=== PATIENT | female | born 1975 | race American Indian/Alaskan Native ===

== ENCOUNTER 2017-01-19 11:57 | Outpatient (CLI) | payer OTHER ==
[2017-01-19] MEDS ORDERED: NACL ONE (13:23)
--- NOTE | 2017-01-19 14:40 | Cat Scan Report ---
CT scan of abdomen and pelvis with IV contrast: History: Nausea with vomiting. Findings: Normal lung bases. No pleural pericardial effusion. Normal spleen, pancreas and gallbladder. Circumscribed hypodensity in liver measuring 1.5 cm in diameter suggestive of cyst. Normal adrenals and kidney parenchyma and bladder. Retroverted uterus. No free intraperitoneal fluid. No evidence of adenopathy. Normal aorta. The appendix is not confidently visualized although no evidence of appendicitis is noted. No evidence of diverticulitis. Gaseous colon with Impression: Cyst in liver. No definite acute abdominal findings. Moderate volume stool in colon mainly in the ascending colon.
== END 2017-01-19 11:58 | disposition home or self-care (01) ==
LOC: CT 11:57
PROVIDERS: ATTEND Internal Medicine
DX: K76.89 Other specified diseases of liver (principal); N85.4 Malposition of uterus; R11.2 Nausea with vomiting, unspecified
CPT/HCPCS: 74177; Q9967